=== PATIENT | female | born 1990 | race Caucasian/White ===

== ENCOUNTER 2018-08-03 14:38 | Inpatient (IN) | payer OTHER, SELFPAY ==
[2018-08-03] MEDS ORDERED: Ondansetron PF 4 MG/2 ML Vial ONE ×3 (15:14→21:02)
[2018-08-03] MEDS ORDERED: PHENYLEPHRINE-NS 100 MCG/ML 10 ML SYRINGE ONE ×2 (15:14→21:01)
[2018-08-03 15:31] VITALS: BMI 27.1
[2018-08-03] MEDS ORDERED: Ondansetron PF 4 MG/2 ML Vial IVP PRN ×2 (15:43→21:34)
[2018-08-03] MEDS ORDERED: Promethazine HCl 25 MG/ML VIAL IM PRN ×2 (15:43→21:34)
[2018-08-03] MEDS ORDERED: Butorphanol Tartrate 1 MG/ML VIAL SLOW IVP PRN (15:43)
[2018-08-03] MEDS ORDERED: Bicitra 30 ML UDCUP PO SCH (15:45)
[2018-08-03] MEDS ORDERED: CEFAZOLIN 2 GM/50 ML BAG IVPB SCH (15:45)
[2018-08-03] MEDS: Lactated Ringer's 1,000 ML IV SCH ×2 (16:44→17:40)
[2018-08-03 17:38] LABS: Hemoglobin 12.1 g/dL (12.0-16.0); Mean Corpuscular HGB CONC 33.7 g/dL (32.0-36.0); Mean Corpuscular Hemoglobin 29.7 pg (27.0-31.0); Mean Platelet Volume 7.2 fL (7.4-10.4); Platelet Count 227 thou/uL (130-400); RBC Distribution Width 11.8 % (11.5-14.5); Red Blood Cell (RBC) Count 4.09 mill/uL (4.20-5.40); White Blood Cell (WBC) Count 7.6 thou/uL (4.8-10.8)
[2018-08-03 18:17] LABS: Syphilis Antibody Nonreactive (Nonreactive); Syphilis Antibody Index 0.05 S/CO (<1.00 Non-Reactive)
[2018-08-03 18:19] LABS: HBSAg Index 0.19 S/CO (0-0.99); Hep B Surf Ag Non-Reactive S/CO (NonReactive)
--- NOTE | 2018-08-03 20:40 | PDOC.LDHP ---
Labor and Delivery H&P Chief complaint: decreased movement, other (Oligohydramnios) HPI: 28 y/o at 37 and 3/7 weeks presents for primary for Breech Presentation, Oligohydramnios, and Non-reassuring BPP in office today of 12/28. Baby was watched by ultrasound over two 30 minute periods with inadequate tone and movement. Due date: 08/21/18 Grav: 2 Para: 1 Current complications: oligohydramnios, breech Abnormal US findings: Yes (BPP 12/28 today) Current medications: pre- vitamins Previous surgical history: other (Bladder Surgery for reflux) Allergies/Adverse Reactions: Allergies Allergy/AdvReac Type Severity Reaction Status Date / Time No Known Allergies Allergy Verified 08/03/18 15:34 - Physical Exam Vital signs reviewed and normal: yes General: NAD, resting Heart: RRR Lungs: nonlabored breathing Abdomen: NTTP Extremeties: no edema FHT: category 1 - Assessment L&D Assessment: scheduled primary section - Plan Plan: admit to L&D, to OR for section
[2018-08-03] MEDS ORDERED: Bupivacaine 0.75% W/DEXTROSE 8.25% 2 ML AMP ONE (21:01)
[2018-08-03] MEDS ORDERED: Oxytocin 10 UNITS/ML VIAL ONE ×2 (21:01→21:44)
[2018-08-03] MEDS ORDERED: Morphine PF 1 MG/ML SYR ONE (21:01)
[2018-08-03] MEDS ORDERED: Lidocaine 2% PF 5 ML VIAL ONE (21:06)
[2018-08-03] MEDS ORDERED: L&D-Morphine 4 MG/ML VIAL SLOW IVP PRN (21:34)
[2018-08-03] MEDS ORDERED: Naloxone HCl 0.4 mg/ml Vial IVP PRN ×2 (21:34)
[2018-08-03] MEDS ORDERED: HYDROmorphone 2 MG/ML VIAL SLOW IVP PRN (21:34)
[2018-08-03] MEDS ORDERED: Hydrocerin (Eucerin) Cream 120 gm Jar TOP PRN (21:34)
[2018-08-03] MEDS ORDERED: Promethazine HCl 25 MG SUPP PR PRN (21:34)
[2018-08-03] MEDS ORDERED: Naloxone HCl 0.4 mg/ml Vial IV PRN (21:34)
[2018-08-03] MEDS ORDERED: diphenhydrAMINE 50 MG/ML VIAL IVP PRN (21:34)
[2018-08-03] MEDS ORDERED: Ketorolac Tromethamine 30 MG/ML VIAL IVP PRN (21:34)
[2018-08-03] MEDS ORDERED: Meperidine HCl/PF 25 MG/ML VIAL SLOW IVP PRN (21:34)
[2018-08-03] MEDS ORDERED: Ondansetron HCl/PF 4 MG/2 ML Vial IVP PRN (21:34)
[2018-08-03] MEDS ORDERED: Communication Order-Pharmacy FS SCH (21:45)
[2018-08-03] MEDS ORDERED: Ketorolac Tromethamine 30 MG/ML VIAL IVP SCH (21:45)
[2018-08-04] MEDS ORDERED: Ketorolac Tromethamine 30 MG/ML VIAL ONE (00:09)
[2018-08-04] MEDS: Lactated Ringer's 1,000 ML IV SCH (00:41)
[2018-08-04] MEDS ORDERED: Bisacodyl 10 MG SUPP PR PRN (00:42)
[2018-08-04] MEDS ORDERED: Promethazine HCl 25 MG/ML VIAL IM PRN (00:42)
[2018-08-04] MEDS ORDERED: Ondansetron PF 4 MG/2 ML Vial IVP PRN (00:42)
[2018-08-04] MEDS ORDERED: diphenhydrAMINE 25 MG CAP PO PRN (00:42)
[2018-08-04] MEDS ORDERED: Lanolin Ointment 7 GM TUBE TOP PRN (00:42)
[2018-08-04] MEDS ORDERED: NS / Oxytocin 40 units/1000ml 1,000 ML IV SCH (00:42)
[2018-08-04 06:12] LABS: Hemoglobin 10.9 g/dL (12.0-16.0); Mean Corpuscular HGB CONC 33.4 g/dL (32.0-36.0); Mean Corpuscular Hemoglobin 29.8 pg (27.0-31.0); Mean Corpuscular Volume 89.3 fL (78.0-98.0); Mean Platelet Volume 6.7 fL (7.4-10.4); Platelet Count 167 thou/uL (130-400); RBC Distribution Width 11.8 % (11.5-14.5); Red Blood Cell (RBC) Count 3.65 mill/uL (4.20-5.40); White Blood Cell (WBC) Count 9.7 thou/uL (4.8-10.8)
[2018-08-04] MEDS ORDERED: Adacel (T-DAP) 0.5 ML VIAL IM ONE (09:00)
[2018-08-04] MEDS ORDERED: Varicella virus, LIVE 0.5 ML VIAL SC ONE (09:00)
[2018-08-04] MEDS ORDERED: Measles/Mumps/Rubella 10 MCG/0.5 ML VIAL SC ONE (09:00)
[2018-08-04] MEDS: Docusate Calcium (SURFAK) 240 MG CAP PO SCH ×2 (09:32→21:48)
[2018-08-04] MEDS: Simethicone Chewable 80 MG TAB PO PRN ×3 (09:33→20:35)
[2018-08-04] MEDS: HYDROcodone/Acetaminophen 5/325 mg Tablet PO PRN ×2 (09:33→20:35)
[2018-08-04] MEDS ORDERED: Zolpidem Tartrate 5 MG TAB PO PRN (09:45)
[2018-08-04] MEDS ORDERED: HYDROcodone/Acetaminophen 5/325 mg Tablet PO PRN (09:45)
[2018-08-04] MEDS: Ibuprofen 800 MG TAB PO SCH (21:48)
[2018-08-05] MEDS: Ibuprofen 800 MG TAB PO SCH ×3 (05:47→21:53)
[2018-08-05] MEDS ORDERED: Ibuprofen 800 MG TAB PO SCH (06:00)
[2018-08-05] MEDS: Docusate Calcium (SURFAK) 240 MG CAP PO SCH ×2 (09:08→21:53)
[2018-08-05] MEDS: HYDROcodone/Acetaminophen 5/325 mg Tablet PO PRN ×2 (13:22→21:55)
--- NOTE | 2018-08-05 19:27 | PDOC.PP ---
Post Progress Note Post Day #: 2 PO intake tolerated: yes Flatus: yes Ambulation: yes Vital Signs (12 hours) Temp Pulse Resp BP BP Pulse Ox 08/05/18 17:09 98.1 F 84 20 111/65 08/05/18 11:12 98.3 F 93 120/75 97 08/05/18 08:05 98.1 F 73 12 108/56 L 97 Weight Weight 148 lb - Physical Examination General: NAD Cardiovascular: no m/r/g, RRR Respiratory: clear to auscultation bilaterally Abdominal: + bowel sounds, lochia, no distention, appropriately TTP Extremities: negative homans (B) Skin: CS incision dry & intact, no rash Neurological: no gross focal deficits Psychiatric: A&Ox3, normal affect Result Diagrams: 08/04/18 05:43 Additional Labs: Post Labs Blood Type A POSITIVE 08/03/18 16:20 Hep Bs Antigen Non-Reactive S/CO (NonReactive) 08/03/18 16:20
--- NOTE | 2018-08-05 19:28 | PDOC.PP ---
Post Progress Note Post Day #: 1 PO intake tolerated: yes Flatus: yes Ambulation: yes Vital Signs (12 hours) Temp Pulse Resp BP BP Pulse Ox 08/05/18 17:09 98.1 F 84 20 111/65 08/05/18 11:12 98.3 F 93 120/75 97 08/05/18 08:05 98.1 F 73 12 108/56 L 97 Weight Weight 148 lb - Physical Examination General: NAD Cardiovascular: no m/r/g, RRR Respiratory: clear to auscultation bilaterally, non-labored breathing Abdominal: + bowel sounds, lochia, no distention, appropriately TTP Extremities: negative homans (B) Skin: CS incision dry & intact, no rash Neurological: no gross focal deficits Psychiatric: A&Ox3, normal affect Result Diagrams: 08/04/18 05:43 Additional Labs: Post Labs Blood Type A POSITIVE 08/03/18 16:20 Hep Bs Antigen Non-Reactive S/CO (NonReactive) 08/03/18 16:20
[2018-08-05] MEDS: Simethicone Chewable 80 MG TAB PO PRN (21:53)
--- NOTE | 2018-08-06 03:59 | OP ---
DATE OF SERVICE: 08/03/2018 PREOPERATIVE DIAGNOSES: Intrauterine at 37 weeks and 3 days with oligohydramnios and nonre assuring testing in the clinic, breech presentation with declined external cephalic version. POSTOPERATIVE DIAGNOSES: Intrauterine at 37 weeks and 3 days with oligohydramnios and nonr eassuring testing in the clinic, breech presentation with declined external cephalic version. PROCEDURE: Primary low transverse section. FINDINGS: Viable female in complete breech presentation weighing 2709 grams or 6 pounds 0 oun stanley with Apgars 9 and 10. Quantitative blood loss of 455 mL. COMPLICATIONS: None. DETAILS OF THE PROCEDURE: The patient was consented and taken back to the operating room where spina l anesthesia was found to be adequate. She was then prepped and draped in the normal sterile fashion . A time out was performed by the entire operative team. The incision was then marked with a marking pen tested using sharp pickups. An incision was then made with a scalpel. The incision was carried through the adipose tissue down to the underlying rectus fascia using both sharp dissection as well as cautery. Once the fascia was identified, it was incised in the midline and then the fascial incis ion was carried through in both lateral directions using sharp as well as cautery dissection techniqu es. Next, the superior aspect of the rectus fascia was grasped with 2 Baron clamps which was tented up and the rectus muscles were dissected off using blunt dissection as well as cautery dissection. Similarly, the inferior aspect of the fascial incision was grasped with 2 Baron clamps, tented up an d the rectus muscles were dissected off bluntly as well as sharply. Next, the rectus muscles were se parated in the midline and the peritoneum identified. The peritoneum was then carefully grasped with two hemostats and entered sharply. The peritoneal incision was extended superiorly and inferiorly a nd bladder blade was placed in the lower abdomen. At this point, the uterus was identified and the b ladder flap was then developed using pickups with teeth as well as Metzenbaum scissors in both latera l directions. The bladder flap was then dissected downwards using the pull out operator's finger as well as M etzenbaum scissors. The bladder blade was replaced. The lower uterine segment was then identified a nd entered sharply using a clean scalpel. The uterine incision was then dissected downwards until th in layer of muscle remained and this was entered bluntly using a hemostat to avoid any injury to the baby. The uterine incision was then stretched using two fingers in both lateral directions. An amniotomy was performed artificially using a hemostat and the baby was delivered using fundal pres sure in a gentle fashion. Once out, the baby's mouth and nose were bulb suctioned, cord clamped and cut, and the baby was handed to waiting attendants. Next, the uterus was exteriorized, cleared of al l clots and debris and the uterine incision was repaired with #1 Monocryl in a running locking fashio n. A second suture of the same type was used to obtain complete hemostasis at the uterine incision. The bladder flap was reapproximated using 3-0 Monocryl. Next, patient's left and right adnexa were inspected and appeared to be within normal limits. The posterior cul-de-sac was blotted dry and hemo stasis assured. One more look at the uterine incision demonstrated hemostasis. Next, the uterus was replaced back within the abdomen. The peritoneum was reapproximated using 2-0 Monocryl without diff iculty. The rectus muscles were then allowed to come back together and 0 chromic was used to aid in reapproximation of the muscle as necessary. The rectus fascia was then reapproximated in a running f ashion using 0 Vicryl suture. The adipose tissue was then examined and appeared to be well approxima neva without any obvious separations. Finally, the skin was reapproximated with 3-0 Monocryl on a Randall th needle without difficulty and Dermabond adhesive was applied to the skin. Once the glue was dry, the drapes were removed and the patient was transferred to an ambulatory bed where she was taken to [facility] awake and in stable condition. Sponge, lap, and needle counts were correct x3. Addendum: Again, baby was delivered in a complete breech presentation without difficulty.
[2018-08-06] MEDS: Ibuprofen 800 MG TAB PO SCH (05:22)
[2018-08-06 07:58] VITALS: BP 100/64; TEMP 98.2
[2018-08-06] MEDS: Docusate Calcium (SURFAK) 240 MG CAP PO SCH (10:05)
== END 2018-08-06 12:55 | disposition home or self-care (01) | DRG 787 ==
LOC: L&D 14:38 → 3SW 08-04 01:54
PROVIDERS: ADMIT Obstetrics & Gynecology; ATTEND Obstetrics & Gynecology
PROC: 10D00Z1 Extraction of Products of Conception, Low, Open Approach (ICD-10-PCS; principal; 2018-08-03)
PROC: 3E0234Z Introduction of Serum, Toxoid and Vaccine into Muscle, Percutaneous Approach (ICD-10-PCS; 2018-08-05)
DX: O32.1XX0 Maternal care for breech presentation, not applicable or unspecified (principal); O41.03X0 Oligohydramnios, third trimester, not applicable or unspecified; Z3A.37 37 weeks gestation of pregnancy; Z37.0 Single live birth; O36.8130 Decreased fetal movements, third trimester, not applicable or unspecified; O77.8 Labor and delivery complicated by other evidence of fetal stress
CPT/HCPCS: 36415; 51702; 85027; 86780; 86850; 86900; 86901; 87340; 90715; J1885; J2001; J2274; J2405; J2590; J3490